=== PATIENT | male | born 1985 | race Caucasian/White ===

== ENCOUNTER 2018-09-26 06:49 | Emergency (ER) | payer OTHER, MEDICAID, SELFPAY ==
--- NOTE | 2018-09-26 06:51 | DI.RAD.S_ITS ---
PROCEDURE: XR CHEST 1V INDICATIONS: Chest pain TECHNIQUE: One view of the chest was acquired. COMPARISON: [facility], CHEST 1 VIEW, 01/28/2009, 5:22. [facility], CHEST 2 VIEW, 01/27/2009, 6:26. FINDINGS: Surgical changes and devices: None. Lungs and pleura: Lungs are clear considering reduced inspiratory volume. No pleural effusions or pneumothorax. Mediastinum: Mediastinal contours appear normal. Heart size is normal. Bones and chest wall: No suspicious bony lesions. Overlying soft tissues appear unremarkable. IMPRESSION: Reduced inspiratory volume, mild lung base atelectasis. The likelihood of pneumonia being superimposed at each lung base is considered low but that is a potential circumstance in this patient. Dictated by: Silverio Tejeda M.D. on 09/26/2018 at 8:13 Approved by: Silverio Tejeda M.D. on 09/26/2018 at 8:14
[2018-09-26 06:55] VITALS: BMI 30.7
--- NOTE | 2018-09-26 07:30 | ED_ITS ---
HPI - Chest Pain General Chief Complaint: Chest Pain Stated Complaint: Chest pain Time Seen by Provider: 09/26/18 06:50 Source: patient Mode of arrival: ambulatory Limitations: no limitations History of Present Illness HPI narrative: Patient is a 33-year-old male who presents with chest pain. he says he has had of bronchitis like cold for about a week overall 5 was getting better. However last night he had some chest discomfort woke up this morning it was worse. He feels like he can't take a deep breath due to pain. The pain is in the center of his chest. Nonradiating. He does have a history of pericardi tis back in 2008. He says this feels different. He admits to smoking 1-2 daily over the last year and a half he also admits to relapsing on heroin this week, states he has been clean for a day and half. Denies any fever. MD complaint: chest pain Onset (ago): hour(s) Duration: constant Onset: awoke with symptoms Pain location: substernal Severity: moderate Quality: heaviness Pain radiation: none Relieving factors: nothing Exacerbating factors: inspiration and movement Context: recent illness Related Data Home Medications Medication Instructions Recorded Confirmed buprenorphine-naloxone 09/26/18 Previous Rx's Medication Instructions Recorded albuterol sulfate 1 puff INHALATION Q4-6H PRN #8 gram 09/26/18 Allergies Allergy/AdvReac Type Severity Reaction Status Date / Time No Known Drug Allergies Allergy Verified 09/26/18 07:01 Review of Systems Review of Systems ROS Unobtainable: All systems reviewed & are unremarkable except as noted in HPI and below Constitutional Denies chills, Denies fever(s), Denies lethargy and Denies weakness ENT Ears, Nose, Mouth, and Throat: Denies change in voice, Denies neck pain and Denies sore throat Cardiovascular Reports as per HPI and Denies dyspnea on exertion Respiratory Reports chest congestion, Denies hemoptysis and Denies dyspnea on exertion Gastrointestinal Gastrointestinal: Denies abdominal pain, Denies change in bowel habits, Denies diarrhea, Denies nausea and Denies vomiting Genitourinary Denies hematuria, Denies flank pain, Denies urinary incontinence and Denies urinary urgency Musculoskeletal Denies neck pain Integumentary/Breasts Denies pruritus, Denies erythema, Denies rash and Denies wounds Neurologic Denies weakness [facility] Medical History (Updated 09/26/18 @ 09:54 by Georgia Terrell DO) Pericarditis (Acute) Social History (Updated 09/26/18 @ 07:29 by Georgia Terrell DO) Smoking Status: Current every day smoker quit status: considering quitting alcohol intake: never substance use type: heroin Social History (Updated 09/26/18 @ 07:29 by Georgia Terrell DO) Smoking Status: Current every day smoker quit status: considering quitting alcohol intake: never substance use type: heroin Exam Initial Vital Signs Initial Vital Signs: Vital Signs Pulse Rate 83 09/26/18 07:44 Pulse Oximetry 94 09/26/18 07:44 GENERAL: Overweight somnolence but answering questions appropriately arousable by voice HEENT: Head atraumatic,EOMI, pupils reactive, face symmetric, CARDIOVASCULAR: Regular rate and rhythm without murmurs, rubs or gallops. RESPIRATORY: Breath sounds equal bilaterally, no wheezes rales or rhonchi. ABDOMEN: Soft, nontender. Normoactive bowel sounds all 4 quadrants. No guarding or rebound. EXTREMITIES: Normal range of motion, no clubbing or edema. Neurovascularly intact NEUROLOGICAL: Alert and oriented x4.Normal gait and speech. Cranial nerves II through XII grossly intact. [Good [id number], good [id number], strength equal bilaterally, no dysarthria or aphasia, sensation in tact to soft touch bilaterally, no visual changes, no facial droop] SKIN: Track richardson noted on left AC Course Orders Ordered: ED Orders 09/26/18 06:51 XR chest 1V Stat EKG-12 Lead Stat 09/26/18 07:10 Complete Blood Count AUTO DIFF Stat Comprehensive Metabolic Panel Stat Erythrocyte Sedimentation Rate Stat Lactate (Lactic Acid) Stat Lipase Stat Partial Thromboplastin Time Stat Procalcitonin Stat Prothrombin Time INR Stat Troponin & CK Cardiac Panel Stat Discontinued Medications Albuterol (Ventolin) 2.5 mg INH NOW ONE Stop: 09/26/18 09:58 Last Admin: 09/26/18 10:15 Dose: 2.5 mg Albuterol/Ipratropium (Duoneb) 3 ml INH NOW ONE Stop: 09/26/18 07:31 Last Admin: 09/26/18 07:44 Dose: 3 ml Sodium Chloride (Normal Saline 0.9%) 1,000 mls @ 125 mls/hr IV CONT MARCO Last Infusion: 09/26/18 10:03 Dose: 0 mls/hr Admin: 09/26/18 07:33 Dose: 125 mls/hr Ketorolac Tromethamine (Toradol) 30 mg IV NOW ONE Stop: 09/26/18 07:31 Last Admin: 09/26/18 07:33 Dose: 30 mg Naloxone HCl (Narcan) 0.4 mg IV NOW ONE Stop: 09/26/18 08:21 Last Admin: 09/26/18 08:23 Dose: 0.4 mg Vital Signs - 8 hr 09/26/18 07:44 09/26/18 08:00 09/26/18 08:50 Pulse Rate 83 93 H 92 H Respiratory Rate 18 19 Blood Pressure Blood Pressure [Right Arm] 129/58 L 136/71 Pulse Oximetry 94 92 97 09/26/18 10:18 09/26/18 10:28 Pulse Rate 87 92 H Respiratory Rate 16 18 Blood Pressure 131/63 Blood Pressure [Right Arm] Pulse Oximetry 95 98 MDM - Chest Pain Lab Data Attestation: I reviewed the patient's lab results. Result diagrams: 09/26/18 07:10 09/26/18 07:10 Lab Results 09/26/18 09/26/18 09/26/18 Range/Units 07:10 07:10 07:10 WBC 20.6 H (4.5-11.0) X10^3/uL RBC 4.95 (4.5-5.9) X10^6/uL Hgb 14.6 (13.5-17.5) g/dL Hct 44.3 (41-53) % MCV 89.5 (80-100) fL MCH 29.6 (26-34) PG MCHC 33.0 (30-36) % RDW 13.5 (11.6-14.8) % Plt Count 362 (150-400) X10^3/uL Neut % (Auto) 80.0 H (50-75) % Lymph % (Auto) 8.9 L (25-40) % [place] % (Auto) 6.9 (3-14) % Eos % (Auto) 3.9 (2-4) % Baso % (Auto) 0.3 (0-2) % Neut # (Auto) 44492 H (2208-2185) /uL Lymph # (Auto) 1800 (5208-7581) /uL [place] # (Auto) 1400 H (0-900) /uL Eos # (Auto) 800 H (0-450) /uL Baso # (Auto) 100 (0-100) /uL ESR 16 H (0-15) MM/HR PT (10.1-12.7) SECONDS INR (0.9-1.3) APTT (26.4-36.2) SECONDS Sodium 136 L (137-145) mmol/L Potassium 4.2 (3.4-5.1) mmol/L Chloride 102 (98-107) mmol/L Carbon Dioxide 26 (22-32) mmol/L BUN 21 H (9-20) mg/dL Creatinine 0.80 (0.66-1.25) mg/dL Estimated GFR > 60.0 (>60) mL/min BUN/Creatinine Ratio 26.3 H (6-22) Glucose 145 H (70-100) mg/dL Lactate 1.0 (0.7-2.1) mmol/L Calcium 9.2 (8.4-10.2) mg/dL Total Bilirubin 0.4 (0.2-1.3) mg/dL AST 35 (17-59) IU/L ALT 57 (21-72) IU/L Alkaline Phosphatase 113 (38-126) U/L Total Creatine Kinase (55-170) U/L CK-MB (CK-2) (<2.37) ng/mL CK-MB (CK-2) Rel Index (1.5-5.0) % Troponin I (0.01-0.034) ng/mL Total Protein 7.1 (6.3-8.2) g/dL Albumin 4.1 (3.5-5.0) g/dL Globulin 3.0 (1.7-4.1) g/dL Albumin/Globulin Ratio 1.4 (1.0-2.8) Lipase 19 L (23-300) U/L Procalcitonin (<0.5) ng/mL 09/26/18 09/26/18 09/26/18 Range/Units 07:10 07:10 07:10 WBC (4.5-11.0) X10^3/uL RBC (4.5-5.9) X10^6/uL Hgb (13.5-17.5) g/dL Hct (41-53) % MCV (80-100) fL MCH (26-34) PG MCHC (30-36) % RDW (11.6-14.8) % Plt Count (150-400) X10^3/uL Neut % (Auto) (50-75) % Lymph % (Auto) (25-40) % [place] % (Auto) (3-14) % Eos % (Auto) (2-4) % Baso % (Auto) (0-2) % Neut # (Auto) (9222-9633) /uL Lymph # (Auto) (1434-7989) /uL [place] # (Auto) (0-900) /uL Eos # (Auto) (0-450) /uL Baso # (Auto) (0-100) /uL ESR (0-15) MM/HR PT 11.1 (10.1-12.7) SECONDS INR 1.0 (0.9-1.3) APTT 33 (26.4-36.2) SECONDS Sodium (137-145) mmol/L Potassium (3.4-5.1) mmol/L Chloride (98-107) mmol/L Carbon Dioxide (22-32) mmol/L BUN (9-20) mg/dL Creatinine (0.66-1.25) mg/dL Estimated GFR (>60) mL/min BUN/Creatinine Ratio (6-22) Glucose (70-100) mg/dL Lactate (0.7-2.1) mmol/L Calcium (8.4-10.2) mg/dL Total Bilirubin (0.2-1.3) mg/dL AST (17-59) IU/L ALT (21-72) IU/L Alkaline Phosphatase (38-126) U/L Total Creatine Kinase 118 (55-170) U/L CK-MB (CK-2) 2.04 (<2.37) ng/mL CK-MB (CK-2) Rel Index 1.7 (1.5-5.0) % Troponin I < 0.012 (0.01-0.034) ng/mL Total Protein (6.3-8.2) g/dL Albumin (3.5-5.0) g/dL Globulin (1.7-4.1) g/dL Albumin/Globulin Ratio (1.0-2.8) Lipase (23-300) U/L Procalcitonin < 0.05 (<0.5) ng/mL Imaging Data Chest x-ray: Radiologist's impression: PROCEDURE: XR CHEST 1V INDICATIONS: Chest pain TECHNIQUE: One view of the chest was acquired. COMPARISON: [facility], CHEST 1 VIEW, 01/28/2009, 5:22. [facility], , CHEST 2 VIEW, 01/27/2009, 6:26. FINDINGS: Surgical changes and devices: None. Lungs and pleura: Lungs are clear considering reduced inspiratory volume. No pleural effusions or pneumothorax. Mediastinum: Mediastinal contours appear normal. Heart size is normal. Bones and chest wall: No suspicious bony lesions. Overlying soft tissues appear unremarkable. IMPRESSION: Reduced inspiratory volume, mild lung base atelectasis. The likelihood of pneumonia being superimposed at each lung base is considered low but that is a potential circumstance in this patient. Dictated by: Silverio Tejeda M.D. on 09/26/2018 at 8:13 ECG Data Attestation: I personally reviewed and interpreted this ECG as follows: Prior ECG tracings: available for review Interpretation: Sinus rhythm rate 97 P are 149 who p[address] depression no ST change [place] QRS 98 QTC 425 MDM Narrative Medical decision making narrative: The patient was slightly somnolent he was given 0.4 mg of Narcan possibly more alert but fell back asleep no vomiting. remains easily arousable to voice. Adamantly denies using before he can states he did not sleep well last night he was up all night with pain. He states bronchodilators actually helped him significantly. He was taught by respiratory a spacer in inhaler teaching overall feels better and ready and able to go home. He was monitored for 90 minutes after Narcan no real significant change arousable by voice feeling better. Discharge Plan Departure Patient Disposition: Home Clinical Impression: Atypical chest pain Discharge Date/Time: 09/26/18 10:30 Interventions: ED Discharge Assessment Last Done: 09/26/18 10:28 Instructions: DI for Atypical Chest Pain Activity Restrictions/Additional Instructions: *You have been diagnosed with atypical chest *What to do: Stop using heroin *Continue to take medications as directed Albuterol 1-2 puffs every 4 hours if needed for chest pain or shortness of breath *Follow up with your primary care provider in 2-3 days *Return to ER if you should have increased chest pain, fever, difficulty breathing or any new, worsening or concerning symptoms Prescriptions: New albuterol sulfate 90 mcg/actuation HFA aerosol inhaler 1 puff INHALATION Q4-6H PRN (Reason: shortness of breath) Qty: 8 RF: 0 No Action buprenorphine-naloxone 8-2 mg film RF: 0
[2018-09-26] MEDS: KETOROLAC 60 MG/2 ML VIAL 30 MG IV (07:33)
[2018-09-26] MEDS: SODIUM CHLORIDE 0.9% 1,000 ML 125 ML IV (07:33)
[2018-09-26 07:35] LABS: Add Manual Diff / Slide Review NO; Basophils Absolute Auto 100 /uL (0-100); Basophils Percent Auto 0.3 % (0-2); Eosinophils Absolute Auto 800 /uL (0-450); Eosinophils Percent Auto 3.9 % (2-4); Hematocrit 44.3 % (41-53); Hemoglobin 14.6 g/dL (13.5-17.5); Lymphocytes Absolute Auto 1800 /uL (1100-4500); Lymphocytes Percent Auto 8.9 % (25-40); Mean Corpuscular Hemoglobin 29.6 PG (26-34); Mean Corpuscular Volume 89.5 fL (80-100); Monocytes Absolute Auto 1400 /uL (0-900); Monocytes Percent Auto 6.9 % (3-14); Neutrophils Absolute Auto 16500 /uL (1500-7000); Platelet Count 362 X10^3/uL (150-400); Red Blood Cell Count 4.95 X10^6/uL (4.5-5.9); Red Cell Distribution Width 13.5 % (11.6-14.8); White Blood Cell Count 20.6 X10^3/uL (4.5-11.0)
--- NOTE | 2018-09-26 07:37 | PC.NURSE ---
Pt is sleeping during nurse exam. will answer questions w/o opening his eyes.
[2018-09-26 07:38] LABS: Prothrombin Time 11.1 SECONDS (10.1-12.7)
[2018-09-26 07:41] LABS: PTT Partial Thromboplastin Tim 33 SECONDS (26.4-36.2)
[2018-09-26 07:44] VITALS: PULSE 83; O2SAT 94
[2018-09-26] MEDS: ALBUTEROL/IPRATROPIUM 3 ML AMPUL INH (07:44)
[2018-09-26 07:47] LABS: Albumin 4.1 g/dL (3.5-5.0); Albumin Globulin Ratio 1.4 (1.0-2.8); BUN Creatinine Ratio 26.3 (6-22); Bilirubin Total 0.4 mg/dL (0.2-1.3); Blood Urea Nitrogen 21 mg/dL (9-20); Calcium 9.2 mg/dL (8.4-10.2); Carbon Dioxide 26 mmol/L (22-32); Chloride 102 mmol/L (98-107); Estimated Glomerular Filt Rate > 60.0 mL/min (>60); HEMOLYSIS < 15 (0-50); Lipase 19 U/L (23-300); Potassium 4.2 mmol/L (3.4-5.1); Sodium 136 mmol/L (137-145); Total Protein 7.1 g/dL (6.3-8.2)
[2018-09-26 07:58] LABS: Troponin I < 0.012 ng/mL (0.01-0.034)
[2018-09-26 08:00] VITALS: BP 129/58; PULSE 93; RESP 18; O2SAT 92
[2018-09-26 08:00] LABS: Alanine Aminotransferase 57 IU/L (21-72); Alkaline Phosphatase 113 U/L (38-126); Aspartate Aminotransferase 35 IU/L (17-59); Glucose 145 mg/dL (70-100)
[2018-09-26 08:01] LABS: Erythrocyte Sedimentation Rate 16 MM/HR (0-15)
[2018-09-26 08:07] LABS: Procalcitonin < 0.05 ng/mL (<0.5)
[2018-09-26 08:15] LABS: Creatine Kinase 118 U/L (55-170)
[2018-09-26] MEDS: NALOXONE 0.4 MG/ML VIAL IV (08:23)
[2018-09-26 08:30] LABS: CKMB % Relative Index 1.7 % (1.5-5.0); Creatine Kinase MB 2.04 ng/mL (<2.37)
--- NOTE | 2018-09-26 08:41 | PC.NURSE ---
States di use heroin last pm and states despite that, I didnt sleep that is why he states somnolent
[2018-09-26 08:50] VITALS: BP 136/71; PULSE 92; RESP 19; O2SAT 97
[2018-09-26] MEDS: ALBUTEROL 2.5 MG/3 ML NEB (ADULT) INH (10:15)
[2018-09-26 10:18] VITALS: PULSE 87; RESP 16; O2SAT 95
[2018-09-26 10:28] VITALS: BP 131/63; PULSE 92; RESP 18; O2SAT 98
== END 2018-09-26 10:30 | disposition home or self-care (01) ==
PROVIDERS: Emergency Medicine; Emergency Provider Emergency Medicine
DX: R07.89 Other chest pain (principal)
CPT/HCPCS: 36591; 71045; 80053; 82550; 82553; 83605; 83690; 84145; 84484; 85025; 85610; 85651; 85730; 93005; 93010; 94640; 96361; 96374; 96375; 99283; 99285; J1885; J2310; J7613

== ENCOUNTER → 2020-09-21 15:30 | Outpatient (CLI) | payer OTHER, SELFPAY ==
[2020-09-21] MEDS: COVID-19 VACC #1, MRNA(MOD) 100 MCG/0.5 ML VIAL IM (15:37)
== END ==
PROVIDERS: Visit Provider Internal Medicine
DX: Z23 Encounter for immunization (principal)
CPT/HCPCS: 0011A; 91301